=== PATIENT | female | born 1975 | race Caucasian/White ===

== ENCOUNTER 2017-04-08 20:20 | Emergency (ER) | payer MEDICAID ==
[~2017-04-08] VITALS: Ht 172.7 cm; Wt 88.0 kg
[~2017-04-08 20:20] MED LIST: ALBU8.5H IH; ALP5 PO; CETI-176 PO; CLON-303 *; CYCL10TA29 PO; DIA5 PO; DOXY-179 PO; ESCI20TA38 PO; ETHI1TAB3 PO; FEN145 PO; HYDR-4309 PO; IBUP800T37 PO; LOR5/325 PO; LOR7.5/325 PO; LORA5TAB16 PO; MEC25 PO; MECL-111 PO; METH54TA12 PO; MON10 PO; NAPR500T75 PO; OMEP-218 PO; PER PO; SERT-173 PO; THYR30TA21 PO; VENL150C61 PO; [UNRECOGNIZED DRUG - CODE] PO
--- NOTE | 2017-04-08 20:27 | ER Report ---
History and Physical Time Seen By MD: 20:24 HPI/ROS CHIEF COMPLAINT: ankle pain and swelling HISTORY OF PRESENT ILLNESS: This is a 41 year old female. She had sudden onset of swelling and pain in the right ankle today. Started a couple of hours ago. She was kneeling down, shifted to the side because of some knee pain. [place] a slight pop in the ankle, but no real pain and was not a significant injury. Then noted pain, swelling happening. No prior problems with this ankle. No history of gout, personal or family history. Normal sensation in toes. Can move everything, but hurts to move the ankle. Allergies: Coded Allergies: No Known Drug Allergies (Verified , 02/22/17) Home Meds Active Scripts Oxycodone Hcl/Acetaminophen (PERCOCET 5-325 MG TABLET) 1 Each Tablet, 1 EACH PO Q4H Y for PAIN, #10 TAB 0 Refills Prov:ETHAN DEWEY MD 04/08/17 Indomethacin (INDOMETHACIN) 25 Mg Capsule, 25 MG PO DIRECTED, #21 CAPSULE 0 Refills Take 2 tablets 3 times a day for 3 days with food, then decrease to 1 tablet 3 times a day for 3 more days Prov:ETHAN DEWEY MD 04/08/17 Reported Medications Doxycycline Hyclate (DOXYCYCLINE HYCLATE) 100 Mg Tablet, 100 MG PO QDAY 02/22/17 Ethinyl Estradiol/Drospirenone (DELANEY 28 TABLET) 1 Each Tablet, 1 EACH PO QDAY, TAB 02/22/17 Methylphenidate Hcl (CONCERTA) 54 Mg Tab.er.24, 54 MG PO QAM 02/22/17 Thyroid,Pork (ARMOUR THYROID) 30 Mg Tablet, 30 MG PO QDAY 02/22/17 Escitalopram Oxalate (LEXAPRO) 20 Mg Tablet, 20 MG PO QDAY 08/28/14 Cetirizine Hcl (ZYRTEC) 10 Mg Tablet, 10 MG PO QDAY, TAB TAKE 1 TABLET DAILY. 12/27/13 Ibuprofen (IBUPROFEN) 800 Mg Tablet, 1 TAB PO Q8H Y for PAIN, #15 08/29/13 Fenofibrate,Micronized (TRICOR) 145 Mg Tab, 145 MG PO QDAY, #10 TAB TAKE 1 TABLET BY MOUTH DAILY 08/23/13 Albuterol Sulfate 90 Mcg/Act (PROAIR HFA 90 MCG/ACT) 8.5 Gm Hfa.aer.ad, 1-2 PUFF IH 3-4XD 08/23/13 Omeprazole Magnesium (Prilosec Otc) 20 Mg Tablet.dr, 20 MG PO QDAY 10/17/11 Montelukast Sodium (Singulair) 10 Mg Tab, 10 MG PO QHS 10/17/11 Discontinued Scripts Diazepam (VALIUM) 5 Mg Tablet, 5 MG PO 2-3XD for Muscle Relaxant, #15 TAB 0 Refills Prov:LYNDA CUMMINGS MD 02/22/17 Hydrocodone Bit/Acetaminophen (HYDROCODON-ACETAMINOPHEN 5-325) 1 Each Tablet, 1 EACH PO Q4-6H Y for PAIN, #15 TAB 0 Refills TAKE ONE TABLET BY MOUTH EVERY 4-6 HOURS NEEDED FOR PAIN Prov:LYNDA CUMMINGS MD 02/22/17 Reviewed Nurses Notes: Yes Hx Smoking: No Smoking Status: Never Smoker Exposure to Second Hand Smoke?: No Hx Substance Use Disorder: No Hx Alcohol Use: Yes (occ) Constitutional Vital Sign - Last 24 Hours 04/08/17 04/08/17 04/08/17 04/08/17 20:23 20:26 20:35 20:50 Temp 98.5 Pulse 86 82 80 Resp 18 B/P (MAP) 140/93 (109) 140/93 Pulse Ox 96 95 96 O2 Delivery Room Air 04/08/17 04/08/17 04/08/17 04/08/17 21:05 21:10 21:15 21:20 Pulse 72 65 78 ??? Pulse Ox 97 97 96 96 04/08/17 04/08/17 04/08/17 04/08/17 21:25 21:30 21:35 21:40 Pulse 73 77 76 82 Pulse Ox 98 96 99 98 04/08/17 04/08/17 04/08/17 04/08/17 21:45 21:50 21:55 22:00 Pulse 75 77 72 77 Pulse Ox 96 98 96 96 04/08/17 04/08/17 04/08/17 04/08/17 22:05 22:10 22:15 22:20 Pulse 78 68 76 70 Pulse Ox 98 96 97 99 04/08/17 04/08/17 04/08/17 04/08/17 22:25 22:30 22:35 22:37 Pulse 66 75 77 B/P (MAP) 112/69 (83) Pulse Ox 96 98 95 Physical Exam General appearance: Patient is alert. No acute distress. Musculoskeletal: Right ankle shows some swelling. There is no obvious deformity. No bruising. Medial malleolus is tender. Lateral malleolus is tender. Head of the fifth metatarsal is nontender. No tenderness with squeeze of the lower leg or the foot. Weight bearing: Weight bearing not tested due to pain. Neurologic: The patient has normal sensation distal to the injury. Active range of motion is intact, but with pain. Cardiovascular: Normal dorsalis pedis and posterior tibialis pulses. Normal capillary refill. Skin: No rash. No skin breakdown. Skin is warm to touch over the area of swelling. DIFFERENTIAL DIAGNOSIS: After history and physical exam differential diagnosis was considered for ankle injury including inflammatory conditions such as gout, sprain, fracture, dislocation and soft tissue injury. Medical Decision Making Data Points Result Diagram: 04/08/17204504/08/172045 Laboratory Hematology Test 04/08/17 20:46 Red Blood Count 3.99 M/uL (4.17-5.56) Mean Corpuscular Volume 91.9 fL (80.0-96.0) Mean Corpuscular Hemoglobin 32.2 pg (26.0-33.0) Mean Corpuscular Hemoglobin Concent 35.1 g/dL (32.0-36.0) Red Cell Distribution Width 12.5 % (11.5-14.5) Mean Platelet Volume 8.6 fL (7.2-11.1) Neutrophils (%) (Auto) 57.9 % (39.4-72.5) Lymphocytes (%) (Auto) 30.4 % (17.6-49.6) Monocytes (%) (Auto) 8.1 % (4.1-12.4) Eosinophils (%) (Auto) 2.7 % (0.4-6.7) Basophils (%) (Auto) 0.9 % (0.3-1.4) Nucleated RBC Relative Count (auto) 0.0 /100WBC Neutrophils # (Auto) 4.4 K/uL (2.0-7.4) Lymphocytes # (Auto) 2.3 K/uL (1.3-3.6) Monocytes # (Auto) 0.6 K/uL (0.3-1.0) Eosinophils # (Auto) 0.2 K/uL (0.0-0.5) Basophils # (Auto) 0.1 K/uL (0.0-0.1) Nucleated RBC Absolute Count (auto) 0.00 K/uL Sodium Level 136 mmol/L (137-145) Potassium Level 3.5 mmol/L (3.5-5.0) Chloride Level 102 mmol/L (98-107) Carbon Dioxide Level 22 mmol/L (22-31) Blood Urea Nitrogen 10 mg/dl (7-18) Creatinine 0.70 mg/dl (0.52-1.04) Glomerular Filtration Rate Calc > 60.0 Random Glucose 84 mg/dl (75-110) Uric Acid 4.0 mg/dl (2.5-7.5) Calcium Level 9.3 mg/dl (8.4-10.2) Total Bilirubin 0.4 mg/dl (0.2-1.3) Aspartate Amino Transf (AST/SGOT) 24 U/L (0-35) Alanine Aminotransferase (ALT/SGPT) 30 U/L (0-56) Alkaline Phosphatase 44 U/L (0-126) C-Reactive Protein 3.7 mg/dl (<1.0) Total Protein 7.7 gm/dl (6.3-8.2) Albumin 4.2 g/dl (3.5-5.0) Chemistry Test 04/08/17 20:46 White Blood Count 7.6 k/uL (4.5-11.0) Red Blood Count 3.99 M/uL (4.17-5.56) Hemoglobin 12.9 g/dL (12.0-16.0) Hematocrit 36.7 % (34.0-47.0) Mean Corpuscular Volume 91.9 fL (80.0-96.0) Mean Corpuscular Hemoglobin 32.2 pg (26.0-33.0) Mean Corpuscular Hemoglobin Concent 35.1 g/dL (32.0-36.0) Red Cell Distribution Width 12.5 % (11.5-14.5) Platelet Count 361 K/uL (150-450) Mean Platelet Volume 8.6 fL (7.2-11.1) Neutrophils (%) (Auto) 57.9 % (39.4-72.5) Lymphocytes (%) (Auto) 30.4 % (17.6-49.6) Monocytes (%) (Auto) 8.1 % (4.1-12.4) Eosinophils (%) (Auto) 2.7 % (0.4-6.7) Basophils (%) (Auto) 0.9 % (0.3-1.4) Nucleated RBC Relative Count (auto) 0.0 /100WBC Neutrophils # (Auto) 4.4 K/uL (2.0-7.4) Lymphocytes # (Auto) 2.3 K/uL (1.3-3.6) Monocytes # (Auto) 0.6 K/uL (0.3-1.0) Eosinophils # (Auto) 0.2 K/uL (0.0-0.5) Basophils # (Auto) 0.1 K/uL (0.0-0.1) Nucleated RBC Absolute Count (auto) 0.00 K/uL Glomerular Filtration Rate Calc > 60.0 Uric Acid 4.0 mg/dl (2.5-7.5) Calcium Level 9.3 mg/dl (8.4-10.2) Total Bilirubin 0.4 mg/dl (0.2-1.3) Aspartate Amino Transf (AST/SGOT) 24 U/L (0-35) Alanine Aminotransferase (ALT/SGPT) 30 U/L (0-56) Alkaline Phosphatase 44 U/L (0-126) C-Reactive Protein 3.7 mg/dl (<1.0) Total Protein 7.7 gm/dl (6.3-8.2) Albumin 4.2 g/dl (3.5-5.0) EKG/Imaging Imaging RIGHT ANKLE: Indication: Pain and swelling. Technique: 3 views were obtained. Comparison: None. Findings: There is no evidence of fracture, subluxation, or other acute deformity. There is uniform mineralization of the bony structures. There is mild periarticular soft tissue swelling. IMPRESSION: Mild soft tissue swelling. No acute skeletal deformity. Report Dictated By: Toño Somers MD at 04/08/2017 9:45 PM ED Course/Re-evaluation ED Course Imaging negative. Based on onset of pain and how sensitive it is even to light touch, I think this is going to be a gout flareup. I doubt this is a strain. We' ll treat with indomethacin and some Percocet. Uric acid level is negative but CRP is high. No signs of infection and no skin breakdown. Decision to Disposition Date: Apr 08, 2017 Decision to Disposition Time: 22:29 Depart Departure Latest Vital Signs Vital Signs Date Time Temp Pulse Resp B/P (MAP) Pulse Ox O2 Delivery O2 Flow Rate FiO2 04/08/17 22:37 112/69 (83) 04/08/17 22:35 77 95 04/08/17 20:26 98.5 18 Room Air Impression: Primary Impression: Gout attack Condition: Improved Disposition: HOME OR SELF-CARE Referrals: JAREK GODDARD MD (PCP) New Scripts Oxycodone Hcl/Acetaminophen (PERCOCET 5-325 MG TABLET) 1 Each Tablet 1 EACH PO Q4H Y for PAIN, #10 TAB 0 Refills Prov: ETHAN DEWEY MD 04/08/17 Indomethacin (INDOMETHACIN) 25 Mg Capsule 25 MG PO DIRECTED, #21 CAPSULE 0 Refills Take 2 tablets 3 times a day for 3 days with food, then decrease to 1 tablet 3 times a day for 3 more days Prov: ETHAN DEWEY MD 04/08/17 Patient Instructions: Gout (ED) Additional Instructions: Indomethacin 25mg tablets, take 2 tablets 3 times a day for 3 days, then decrease to 1 tablet 3 times a day for 3 more day. Take this with food. Take Percocet 5/325, one every 4 hours as needed for pain. Problem Qualifiers Primary Impression: Gout attack Gout site: ankle Gout etiology: unspecified cause Laterality: right Qualified Codes: M10.9 - Gout, unspecified ETHAN DEWEY MD Apr 08, 2017 20:27
[2017-04-08 20:52] LABS: PLATELET COUNT, AUTOMATED 361 K/uL (150-450)
--- NOTE | 2017-04-08 21:52 | RADIOLOGY IMAGING REPORT ---
[place] [facility] [place] NAME: Anusha Subramanian : 1975 MR: [id number] V: [id number] EXAM DATE: ORDERING PHYSICIAN: ETHAN DEWEY TECHNOLOGIST: Location: [facility] Patient: Anusha Subramanian : 1975 Visit/Account:[id number] Date of Sevice: 04/08/2017 RIGHT ANKLE: Indication: Pain and swelling. Technique: 3 views were obtained. Comparison: None. Findings: There is no evidence of fracture, subluxation, or other acute deformity. There is uniform m ineralization of the bony structures. There is mild periarticular soft tissue swelling. IMPRESSION: Mild soft tissue swelling. No acute skeletal deformity. Report Dictated By: Toño Somers MD at 04/08/2017 9:45 PM Report E-Signed By: Toño Somers MD at 04/08/2017 9:47 PM WSN:[id number]
[2017-04-08] MEDS ORDERED: ONDANSETRON 4 MG ODT TABDP SL ONE (22:00)
[2017-04-08] MEDS ORDERED: oxyCODONE/ACETAMIN 5/325MG TH 2 TAB/BOTTLE PO ONE (22:30)
[2017-04-08] MEDS ORDERED: INDOMETHACIN 25 MG CAP PO ONE (22:30)
[2017-04-08] MEDS ORDERED: OXYC-865 PO (22:31)
[2017-04-08] MEDS ORDERED: INDO-1 PO (22:31)
[2017-04-08 22:37] VITALS: BP 112/69
== END 2017-04-08 22:35 | disposition home or self-care (01) ==
LOC: ER 20:33
DX: M10.9 Gout, unspecified (principal)
CPT/HCPCS: 36415; 73610; 84550; 85025; 86140; 99284; S0119; 82040; 82247; 82310; 82374; 82435; 82565; 82947; 84075; 84132; 84155; 84295; 84450; 84460; 84520

== ENCOUNTER 2017-04-14 14:09 | Emergency (ER) | payer MEDICAID ==
[~2017-04-14] VITALS: Ht 172.7 cm; Wt 88.0 kg
[~2017-04-14 14:09] MED LIST changes: +INDO-1 PO; +OXYC-865 PO
--- NOTE | 2017-04-14 14:16 | ER Report ---
History and Physical Time Seen By MD: 14:16 HPI/ROS CHIEF COMPLAINT: Right ankle pain HISTORY OF PRESENT ILLNESS: This is a 41-year-old female who presents to the emergency department again for right ankle swelling. Patient states that about 2 weeks ago she was kneeling down on the floor with her feet extended behind her the right ankle became uncomfortable she rolled to the side and felt a pop in her right ankle. She then developed some inflammation to the right ankle. After about a week she decided to come into the emergency department for further evaluation she was evaluated last Tuesday and was given indomethacin for possible gouty flareup. Patient went home took the indomethacin was instructed to keep her ankle elevated. Patient states there is a slight improvement in the inflammation but still painful. Patient also states that she has been working still and hasn't kept her ankle elevated as frequently as she was instructed to. Patient denies numbness or tingling. No coughs, nausea, vomiting, headaches , chest pain or shortness of breath. REVIEW OF SYSTEMS: Constitutional: No fever, no chills. Eyes: No discharge. ENT: No sore throat. Cardiovascular: No chest pain, no palpitations. Respiratory: No cough, no shortness of breath. Gastrointestinal: No abdominal pain, no vomiting. Genitourinary: No hematuria. Musculoskeletal: As above. Skin: No rashes. Neurological: No headache. Allergies: Coded Allergies: No Known Drug Allergies (Verified , 04/14/17) Home Meds Active Scripts Ibuprofen (IBUPROFEN) 800 Mg Tablet, 1 TAB PO Q8H Y for prn, #32 TAB Prov:ADAMA POLANCO [employer]-BC 04/14/17 Oxycodone Hcl/Acetaminophen (PERCOCET 5-325 MG TABLET) 1 Each Tablet, 1 EACH PO Q4H Y for PAIN, #10 TAB 0 Refills Prov:ETHAN DEWEY MD 04/08/17 Indomethacin (INDOMETHACIN) 25 Mg Capsule, 25 MG PO DIRECTED, #21 CAPSULE 0 Refills Take 2 tablets 3 times a day for 3 days with food, then decrease to 1 tablet 3 times a day for 3 more days Prov:ETHAN DEWEY MD 04/08/17 Reported Medications Doxycycline Hyclate (DOXYCYCLINE HYCLATE) 100 Mg Tablet, 100 MG PO QDAY 02/22/17 Ethinyl Estradiol/Drospirenone (DELANEY 28 TABLET) 1 Each Tablet, 1 EACH PO QDAY, TAB 02/22/17 Methylphenidate Hcl (CONCERTA) 54 Mg Tab.er.24, 54 MG PO QAM 02/22/17 Thyroid,Pork (ARMOUR THYROID) 30 Mg Tablet, 30 MG PO QDAY 02/22/17 Escitalopram Oxalate (LEXAPRO) 20 Mg Tablet, 20 MG PO QDAY 08/28/14 Cetirizine Hcl (ZYRTEC) 10 Mg Tablet, 10 MG PO QDAY, TAB TAKE 1 TABLET DAILY. 12/27/13 Ibuprofen (IBUPROFEN) 800 Mg Tablet, 1 TAB PO Q8H Y for PAIN, #15 08/29/13 Fenofibrate,Micronized (TRICOR) 145 Mg Tab, 145 MG PO QDAY, #10 TAB TAKE 1 TABLET BY MOUTH DAILY 08/23/13 Albuterol Sulfate 90 Mcg/Act (PROAIR HFA 90 MCG/ACT) 8.5 Gm Hfa.aer.ad, 1-2 PUFF IH 3-4XD 08/23/13 Omeprazole Magnesium (Prilosec Otc) 20 Mg Tablet.dr, 20 MG PO QDAY 10/17/11 Montelukast Sodium (Singulair) 10 Mg Tab, 10 MG PO QHS 10/17/11 Discontinued Scripts Diazepam (VALIUM) 5 Mg Tablet, 5 MG PO 2-3XD for Muscle Relaxant, #15 TAB 0 Refills Prov:LYNDA CUMMINGS MD 02/22/17 Hydrocodone Bit/Acetaminophen (HYDROCODON-ACETAMINOPHEN 5-325) 1 Each Tablet, 1 EACH PO Q4-6H Y for PAIN, #15 TAB 0 Refills TAKE ONE TABLET BY MOUTH EVERY 4-6 HOURS NEEDED FOR PAIN Prov:LYNDA CUMMINGS MD 02/22/17 Past Medical/Surgical History Patient has a past medical and surgical history of hypercholesterolemia, asthma , pneumonia, acid reflux, wears glasses and contacts, depression, anxiety, left knee surgery, tubal ligation. Reviewed Nurses Notes: Yes Hx Smoking: No Smoking Status: Never Smoker Exposure to Second Hand Smoke?: No Hx Substance Use Disorder: No Hx Alcohol Use: Yes (occ) Constitutional Vital Sign - Last 24 Hours 04/14/17 04/14/17 14:15 15:00 Temp 98.1 Pulse 96 91 Resp 16 B/P (MAP) 135/93 125/79 (94) Pulse Ox 97 95 O2 Delivery Room Air Room Air Physical Exam General Appearance: The patient is alert, has no immediate need for airway protection and no signs of toxicity. Eyes: Pupils equal and round no pallor or injection. ENT, Mouth: Mucous membranes are moist. Respiratory: There are no retractions, lungs are clear to auscultation. Cardiovascular: Regular rate and rhythm, distant heart sounds, no murmurs, clicks or rubs Gastrointestinal: Abdomen is soft and non tender, no masses, bowel sounds normal. Neurological: Alert and oriented X4. Moving all extremities. Following all commands. No focal neuro deficits. Skin: Swelling and slightly warm over the anterior part of foot and ankle, very faint ecchymosis, no rashes. No erythema or cellulitis. Is able to flex and extend foot. Musculoskeletal: Neck is supple non tender. CMS intact distal to the inflammation. All other extremities are nontender, nonswollen and have full range of motion. DIFFERENTIAL DIAGNOSIS: After history and physical exam differential diagnosis was considered for ankle sprain, gout, septic joint. Medical Decision Making ED Course/Re-evaluation ED Course The patient was admitted to room. A history physical were obtained. Differential diagnoses were considered. After reviewing the patient's x-rays from last week and reading through the reports and evaluation of her chief complaint today I did not feel a repeat Xray would not be beneficial. The patient did tell me that there has been a slight improvement in the inflammation since taking the indomethacin she was prescribed last Tuesday, she also states she is out of her pain medication. She and her mother continued to ask for more of the pain medication, I repeatedly told them that the narcotic pain medication will not fix the problem, therefore I will prescribe 800mg ibuprofen and she needs to follow up with ortho as this has been ongoing for 2 weeks and could have some ligament or tendon inflammation. There are no signs of infection, no erythema or cellulitis, the joints are freely movable, not hot , no redness therefore a septic joint is very unlikely. No calf pain, no concerns of a DVT. She has good CMS distal to the injury. I told her she needs to call today and schedule a follow up appointment with any of the Ortho providers tomorrow. I instructed her to keep her foot elevated and avoid walking on it for the next several days to help with the pain. I did offer crutches which she declined. I did give her an air stirrup to help with inflammation and overall support. After a lengthy discussion the patient was in agreement with this plan of care and was discharged home. I also instructed her to alternate the ibuprofen with the Tylenol for her pain. I also instructed her to establish a PCP who is not an [employer] for future medical care. Decision to Disposition Date: Apr 14, 2017 Decision to Disposition Time: 15:04 Depart Departure Latest Vital Signs Vital Signs Date Time Temp Pulse Resp B/P (MAP) Pulse Ox O2 Delivery O2 Flow Rate FiO2 04/14/17 15:00 91 125/79 (94) 95 Room Air 04/14/17 14:15 98.1 16 Impression: Primary Impression: Right ankle swelling Additional Impression: Tendonitis Condition: Improved Disposition: HOME OR SELF-CARE Referrals: JAREK GODDARD MD (PCP) SNEHA ZEPEDA MD [facility] New Scripts Ibuprofen (IBUPROFEN) 800 Mg Tablet 1 TAB PO Q8H Y for prn, #32 TAB Prov: ADAMA POLANCO 04/14/17 Departure Forms: ER Transition Record, Medications Reconciliation, Off Work/ School Form, School or Work Release?: Work Number of days to be released: 2 Patient Portal Information Patient Instructions: Ankle Sprain (ED), Neck Pain (GEN) Additional Instructions: Drink plenty of water. Get plenty of rest. Call [facility] today and try to schedule an appointment with one of the MD's tomorrow for evaluation of the foot and ankle. Establish a primary care provider within one to two weeks for follow up, please. You can alternate the Ibuprofen and Tylenol as needed for pain. Keep the Ankle elevated as much as possible to reduce the swelling. May return to the ED for worsening symptoms. Problem Qualifiers ADAMA POLANCO-BC Apr 14, 2017 14:16
[2017-04-14] MEDS ORDERED: IBUPROFEN 600 MG TAB TH PO ONE (14:55)
[2017-04-14] MEDS ORDERED: IBUP800T37 PO (14:57)
[2017-04-14 15:00] VITALS: BP 125/79
== END 2017-04-14 15:05 | disposition home or self-care (01) ==
LOC: ER 14:09
DX: M77.9 Enthesopathy, unspecified (principal)
CPT/HCPCS: 99283; L1930

== ENCOUNTER → 2017-04-18 | Outpatient (CLI) | payer MEDICAID ==
[2017-04-18 14:06] LABS: PLATELET COUNT, AUTOMATED 483 K/uL (150-450)
== END ==
LOC: LAB 13:31
PROVIDERS: ATTEND Orthopaedic Surgery
DX: M25.471 Effusion, right ankle (principal); M25.571 Pain in right ankle and joints of right foot
CPT/HCPCS: 36415; 84550; 85025; 85651; 86140

== ENCOUNTER 2017-05-10 11:01 | Outpatient (RCR) | payer MEDICAID ==
--- NOTE | 2017-05-24 11:15 | RADIOLOGY IMAGING REPORT ---
FACILITY: [facility] PATIENT NAME: Anusha Subramanian : 1975 MR: [id number] V: [id number] EXAM DATE: ORDERING PHYSICIAN: ANGELICA NEUMANN TECHNOLOGIST: Location: [facility] Patient: Anusha Subramanian : 1975 Visit/Account:[id number] Date of Sevice: 05/10/2017 EXAMINATION: Nuclear medicine whole body gallium scan HISTORY: Polyarthralgia. Bilateral foot and ankle pain. COMPARISON: None. TECHNIQUE: 4.8 mCi Gallium 67 was injected intravenously. Delayed anterior and posterior whole body gamma camera images were obtained at 24 hours and 72 hours. Additional gamma camera images: Bilateral knees, feet, hips, chest, elbows and wrists. FINDINGS: Bone radiotracer activity: There is physiologic bone marrow uptake which is symmetric and diminishes on the 72 hour delayed images. Extraosseous radiotracer activity: There are nodular areas of uptake in the upper mediastinum and bi lateral alessandro in the chest, which persists on the 72 hour delayed images. There is focal uptake in chirstin th lacrimal glands. IMPRESSION: 1. No scintigraphic evidence of an inflammatory polyarthropathy. 2. Abnormal uptake in the upper mediastinum, bilateral alessandro and lacrimal glands. This pattern is barrios spicious for sarcoidosis. These findings were discussed with ANGELICA NEUMANN at 05/24/2017 10:30 AM. Report Dictated By: Berkley Long MD at 05/24/2017 10:32 AM Report E-Signed By: Berkley Long MD at 05/24/2017 11:11 AM WSN:[id number]
== END 2017-05-10 18:00 | disposition home or self-care (01) ==
LOC: NUC 11:01
PROVIDERS: ATTEND Internal Medicine
DX: M35.9 Systemic involvement of connective tissue, unspecified (principal)
CPT/HCPCS: 78802

== ENCOUNTER → 2017-05-26 | Outpatient (CLI) | payer MEDICAID ==
[~2017-05-26] MED LIST changes: +IOPAMIDOL 76% 75 ML INFUS BTL 75 ML ONE
--- NOTE | 2017-05-26 14:06 | RADIOLOGY IMAGING REPORT ---
FACILITY: [facility] PATIENT NAME: Anusha Subramanian : 1975 MR: [id number] V: [id number] EXAM DATE: ORDERING PHYSICIAN: ANGELICA NEUMANN TECHNOLOGIST: Location: [facility] Patient: Anusha Subramanian : 1975 Visit/Account:[id number] Date of Sevice: 05/26/2017 Limited abdominal ultrasound of the right upper quadrant Indication: Elevated LFTs , Comparison: None available Findings Liver is normal in size, contour, and echotexture and measures 15.5 cm in length. There is normal hep atopedal portal venous flow. A Gallbladder wall thickness is 2 mm with no evidence of shadowing stone or sludge within the gallbladd er lumen. Negative sonographic Almanzar's sign reported by the technologist. Common duct measures 3 mm in maximum diameter with no evidence of shadowing stone. The head and proximal body of the pancreas is unremarkable. The distal body and tail is obscured by o verlying bowel gas. Abdominal aorta and IVC are patent and unremarkable. The right kidney is normal in size, contour, and echotexture and measures 11.3 cm in length. IMPRESSION: 1. Unremarkable appearance of the gallbladder and no acute abnormality on this ultrasound of the righ t upper quadrant region. Report Dictated By: Aaron Ballard at 05/26/2017 2:02 PM Report E-Signed By: Aaron Ballard at 05/26/2017 2:03 PM WSN:[id number]
--- NOTE | 2017-05-26 15:46 | RADIOLOGY IMAGING REPORT ---
FACILITY: [facility] PATIENT NAME: Anusha Subramanian : 1975 MR: [id number] V: [id number] EXAM DATE: ORDERING PHYSICIAN: ANGELICA NEUMANN TECHNOLOGIST: Location: [facility] Patient: Anusha Subramanian : 1975 Visit/Account:[id number] Date of Sevice: 05/26/2017 CT neck with and without contrast Comparison: None Additional pertinent history: Generalized hyperhidrosis TECHNIQUE: Multiple axial images were obtained from the mid portion of the brain through the superio r mediastinum with and without IV contrast. Coronal and sagittal reformatted images were obtained o ff the axial source data. One of the following dose optimization techniques was utilized in the perf ormance of this exam: Automated exposure control; adjustment of the mA and/or kV according to the pat ient's size; or use of an iterative reconstruction technique. Specific details can be referenced in the facility's radiology CT exam operational policy. CONTRAST: 75 mL of Isovue-370 FINDINGS: Visualized portions of the brain parenchyma:Negative Parotid glands/submandibular glands/thyroid: Negative Orbits: Negative Paranasal sinuses: Negative Parapharyngeal spaces: Negative Nasopharynx/oropharynx/hypopharynx: Negative Tonsillar pillars: Negative Oral tongue/tongue base: Negative True and false cords: Negative Lymph node assessment: Multiple enlarged lymph nodes involving the lower neck as well as the supracla vicular regions and the superior mediastinum and posterior mediastinum. Surrounding soft tissues: Negative Vasculature: Negative Osseous structures: Minimal spondylitic change involving the mid cervical spine. Lung apices: Negative IMPRESSION: 1. Multiple enlarged lymph nodes involving the lower neck bilaterally as well as the supraclavicular regions and the superior and posterior mediastinum. Etiologies such as an underlying lymphoid disorde r would be in the consideration. 2. Remaining portions of the exam are unremarkable. Report Dictated By: Dionisio Tejeda MD at 05/26/2017 3:36 PM Report E-Signed By: Dionisoi Tejeda MD at 05/26/2017 3:42 PM WSN:[id number]
--- NOTE | 2017-05-26 17:11 | RADIOLOGY IMAGING REPORT ---
FACILITY: [facility] PATIENT NAME: Anusha Subramanian : 1975 MR: [id number] V: [id number] EXAM DATE: ORDERING PHYSICIAN: ANGELICA NEUMANN TECHNOLOGIST[place] [facility] [place]a Subramanian : 1975 Visit/Account:[id number] Date of Sevice: 05/26/2017 EXAMINATION: CT Chest Without and With Contrast CT Abdomen Without and With Contrast CT Pelvis Without and With Contrast 05/26/2017 3:00 PM HISTORY: Generalized hyperhidrosis TECHNIQUE: Spiral scan was obtained through the chest, abdomen and pelvis before and during injecti on of nonionic iodinated intravenous contrast. Contrast: 75 mL of IV Isovue 370. One of the following dose optimization techniques was utilized in the performance of this exam: Autom ated exposure control; adjustment of the mA and/or kV according to the patient's size; or use of an i terative reconstruction technique. Specific details can be referenced in the facility's radiology C T exam operational policy. COMPARISON STUDIES: CT neck today is reported separately.. FINDINGS: CHEST: Lungs / pleura: Pleural-based subcentimeter groundglass focus laterally within the left upper lobe (s eries 7, images 50 and 51). Pleural-based micronodule in the posterior left base (image 81). Pleura l-parenchymal opacity in the anteromedial basal aspect of the right lower lobe measures about 3.6 x 2 .2 cm (series 7, image 65). Smaller pleural parenchymal focus just posterolateral to this (image 66) . Additional small pleural parenchymal focus along the anterior right middle lobe (images 57 and 58) . Mediastinum / alessandro: negative Heart / pericardium: negative Vessels: negative Musculoskeletal / Body wall: negative Lymph node assessment: Mild the prominent lymph node along the neck base on the right (image 10). Ad enopathy measures 2.2 x 2.0 cm along the right thoracic inlet (image 17). Additional mediastinal lizzy nopathy including a left prevascular lymph node 2.0 x 1.3 cm (image 32), right suprahilar lymph node or conglomeration of lymph nodes 3.2 x 2.3 cm (image 41). Conglomerate subcarinal lymph tissue which is probably 2 adjacent lymph nodes 4.6 x 2.4 cm. Left hilar adenopathy, largest in the infrahilar l ymph node 1.7 x 1.6 cm (image 48). No significant axillary or subpectoral adenopathy with small nons pecific subpectoral lymph nodes. There are also some small nonspecific lymph nodes along the distal esophagus. Lower neck: CT neck is reported separately. Thyroid enhancement is heterogeneous. ABDOMEN AND PELVIS: Liver / biliary: Hepatomegaly with craniocaudal dimension of 20.8 cm. Pancreas: negative Spleen: Borderline splenomegaly. No focal finding. Adrenal glands: negative Kidneys / retroperitoneum: negative Pelvic structures: Tubal ligation clips. Bowel / peritoneum / mesenteries: negative Vessels: negative Musculoskeletal / Body wall: negative Lymph node assessment: Small nonspecific retroperitoneal lymph nodes. No clear pathologically enlarg ed adenopathy. IMPRESSION: 1. Adenopathy in the chest in the neck base as well as nonspecific but somewhat numerous retroperito donovan lymph nodes in the abdomen. The appearance of be concerning for a lymphoproliferative malignanc y such as lymphoma. 2. Nonspecific pleural-parenchymal opacities in the lungs, as above. 3. Hepatomegaly and borderline splenomegaly. Report Dictated By: Leandro Solitario MD at 05/26/2017 4:46 PM Report E-Signed By: Leandro Solitario MD at 05/26/2017 5:08 PM WSN:[email or web address]
== END ==
LOC: CT 03:10
PROVIDERS: ATTEND Internal Medicine
DX: R59.0 Localized enlarged lymph nodes (principal); R16.2 Hepatomegaly with splenomegaly, not elsewhere classified; R91.8 Other nonspecific abnormal finding of lung field
CPT/HCPCS: 70492; 71270; 72194; 74170; 76705; Q9967

== ENCOUNTER 2017-11-25 14:58 | Emergency (ER) | payer MEDICAID ==
[~2017-11-25 14:58] MED LIST changes: -INDO-1 PO; +INDO-21 PO; -IOPAMIDOL 76% 75 ML INFUS BTL 75 ML ONE
[2017-11-25] MEDS ORDERED: IBUPROFEN 600 MG TAB PO ONE (15:30)
[2017-11-25] MEDS ORDERED: CYCLOBENZAPRINE HCL 10 MG TAB PO ONE (15:30)
--- NOTE | 2017-11-25 15:51 | RADIOLOGY IMAGING REPORT ---
FACILITY: [facility] PATIENT NAME: Anusha Subramanian : 1975 MR: [id number] V: [id number] EXAM DATE: ORDERING PHYSICIAN: LYNDA HINDS TECHNOLOGIST: Location: [facility] Patient: Anusha Subramanian : 1975 Visit/Account:[id number] Date of Sevice: 11/25/2017 EXAMINATION: Chest 2 Views HISTORY: Right thoracic pain. COMPARISON: None. FINDINGS: The lungs are clear. No focal consolidation or pleural fluid. No pneumothorax. Normal cardiomediastinal silhouette, with normal heart size and pulmonary vascularity. Visualized osseous structures are unremarkable. IMPRESSION: Negative chest. Report Dictated By: Elijah Leger MD at 11/25/2017 3:44 PM Report E-Signed By: Elijah Leger MD at 11/25/2017 3:46 PM WSN:[id number]
[2017-11-25 16:30] VITALS: BP 138/80
[2017-11-25] MEDS ORDERED: CYCL10TA29 PO (16:45)
--- NOTE | 2017-11-25 16:47 | ER Report ---
History and Physical Time Seen By MD: 15:02 Hx. of Stated Complaint: PATIENT REPORTS PAIN IN RIGHT SHOULDER THAT RADIATES UP INTO HER NECK. SHE ALSO REPORTS PAIN IN HER KNEES AND WRISTS. SHE REPORTS BEING DIAGNOSED WITH SARCOIDOSIS BY ANOTHER PROVIDER HPI/ROS CHIEF COMPLAINT: shoulder pain HISTORY OF PRESENT ILLNESS: Patient states she has had 5 days of worsening right shoulder pain. Patient denies acute injury. Patient states that she had mild pain when she swam on Tuesday recreationally. Patient notes that she had slight increase in pain when swimming and has had ongoing pain since this time. Patient notes pain is around right shoulder blade and is worse with lifting arm overhe ad. Patient states pain occasionally wakes her up at night. Patient has taken Tylenol but no other medication for pain. Patient has tried ice and heat for pain. Patient denies shortness of breath or chest pain. Patient is concerned this may be similar to her sarcoidosis as she has history of pain in her joints however this pain has usually been bilateral. Patient does not have left-sided shoulder pain or left chest pain. Patient denies nausea, vomiting, fevers, chills. Pain radiates down right arm and occasionally shoots up her neck. Patient was placed on 30 mg of prednisone daily 3 weeks ago by a supplier specialist however she was unsure of the need of this regimen as another provider felt she did not need to be on its own has not been on prednisone for greater than one week. REVIEW OF SYSTEMS: Constitutional: No fever, no chills. Eyes: No discharge. ENT: No sore throat. Cardiovascular: No chest pain, no palpitations. Respiratory: No cough, no shortness of breath. Gastrointestinal: No abdominal pain, no vomiting. Genitourinary: No hematuria. Musculoskeletal: r mid/upper back/shoulder pain as above Skin: No rashes. Neurological: No headache. Allergies: Coded Allergies: No Known Drug Allergies (Verified , 04/14/17) Home Meds Active Scripts Cyclobenzaprine Hcl (CYCLOBENZAPRINE HCL) 10 Mg Tablet, 10 MG PO Q8H PRN for MUSCLE SPASMS, #20 TAB 0 Refills Prov:LYNDA HINDS MD 11/25/17 Ibuprofen (IBUPROFEN) 800 Mg Tablet, 1 TAB PO Q8H PRN for prn, #32 TAB Prov:ADAMA POLANCO PETROGRAPHER-BC 2/8/18 Reported Medications Ethinyl Estradiol/Drospirenone (DELANEY 28 TABLET) 1 Each Tablet, 1 EACH PO QDAY, TAB 02/22/17 Thyroid,Pork (ARMOUR THYROID) 30 Mg Tablet, 30 MG PO QDAY 02/22/17 Escitalopram Oxalate (LEXAPRO) 20 Mg Tablet, 20 MG PO QDAY 08/28/14 Cetirizine Hcl (ZYRTEC) 10 Mg Tablet, 10 MG PO QDAY, TAB TAKE 1 TABLET DAILY. 12/27/13 Ibuprofen (IBUPROFEN) 800 Mg Tablet, 1 TAB PO Q8H PRN for PAIN, #15 08/29/13 Albuterol Sulfate 90 Mcg/Act (PROAIR HFA 90 MCG/ACT) 8.5 Gm Hfa.aer.ad, 1-2 PUFF IH 3-4XD 08/23/13 Omeprazole Magnesium (Prilosec Otc) 20 Mg Tablet.dr, 20 MG PO QDAY 10/17/11 Montelukast Sodium (Singulair) 10 Mg Tab, 10 MG PO QHS 10/17/11 Discontinued Reported Medications Doxycycline Hyclate (DOXYCYCLINE HYCLATE) 100 Mg Tablet, 100 MG PO QDAY 02/22/17 Methylphenidate Hcl (CONCERTA) 54 Mg Tab.er.24, 54 MG PO QAM 02/22/17 Fenofibrate,Micronized (TRICOR) 145 Mg Tab, 145 MG PO QDAY, #10 TAB TAKE 1 TABLET BY MOUTH DAILY 08/23/13 Discontinued Scripts Oxycodone Hcl/Acetaminophen (PERCOCET 5-325 MG TABLET) 1 Each Tablet, 1 EACH PO Q4H PRN for PAIN, #10 TAB 0 Refills Prov:ETHAN DEWEY MD 04/08/17 Indomethacin (INDOMETHACIN) 25 Mg Capsule, 25 MG PO DIRECTED, #21 CAPSULE 0 Refills Take 2 tablets 3 times a day for 3 days with food, then decrease to 1 tablet 3 times a day for 3 more days Prov:ETHAN DEWEY MD 04/08/17 Reviewed Nurses Notes: Yes Hx Smoking: No Smoking Status: Never Smoker Exposure to Second Hand Smoke?: No Hx Substance Use Disorder: No Hx Alcohol Use: Yes (occ) Constitutional Vital Sign - Last 24 Hours 11/25/17 11/25/17 11/25/17 11/25/17 15:03 15:03 15:28 15:30 Temp 98.3 Pulse 85 82 Resp 20 B/P (MAP) 152/104 (120) 152/104 125/107 (113) Pulse Ox 96 95 O2 Delivery Room Air 11/25/17 11/25/17 11/25/17 11/25/17 15:58 16:00 16:28 16:30 Pulse 81 81 B/P (MAP) 124/82 (96) 138/80 (99) Pulse Ox 96 98 Physical Exam General Appearance: [The patient is alert, has no immediate need for airway protection and no signs of toxicity. Eyes: Pupils equal and round no pallor or injection. ENT, Mouth: Mucous membranes are moist. Respiratory: There are no retractions, lungs are clear to auscultation. Cardiovascular: Regular rate and rhythm. Gastrointestinal: Abdomen is soft and non tender, no masses, bowel sounds normal. Neurological: alert, oriented, moves all extremities, no gross cranial nerve deficits Skin: Warm and dry, no rashes. Musculoskeletal: Neck is supple non tender. Right mid thoracic ttp with completely reproducible pain in area of r latissimus dorsi. Extremities are nontender, nonswollen and have full range of motion; Pt has pain upon complete abduction of r shoulder, however all pain is related to the completely reproducible r lat pain/ttp. DIFFERENTIAL DIAGNOSIS: After history and physical exam differential diagnosis was considered for pe, ptx, pneumonia, aortic dissection, fracture, dislocation, joint injury, muscle spasm, or other emergent etiology Medical Decision Making ED Course/Re-evaluation ED Course Pt presents with r thoracic back pain; no e/o underlying emergent etiology. Pt improves slightly in ED. CXR unremarkable. Will d/c with SRP's and close f/u, disucssed ice, musc relaxant, massage, and f/u with supplier specialist. Decision to Disposition Date: Nov 25, 2017 Decision to Disposition Time: 16:55 Depart Departure Latest Vital Signs Vital Signs Date Time Temp Pulse Resp B/P (MAP) Pulse Ox O2 Delivery O2 Flow Rate FiO2 11/25/17 16:30 138/80 (99) 11/25/17 16:28 81 98 11/25/17 15:03 98.3 20 Room Air Impression: Primary Impression: Muscle strain of right upper back Condition: Improved Disposition: HOME OR SELF-CARE New Scripts Cyclobenzaprine Hcl (CYCLOBENZAPRINE HCL) 10 Mg Tablet 10 MG PO Q8H PRN for MUSCLE SPASMS, #20 TAB 0 Refills Prov: LYNDA HINDS MD 11/25/17 Patient Instructions: Back Pain (ED), Muscle Strain (ED) Additional Instructions: As we discussed, return immediately for new/different symptoms or any concerns. You may use combination of ice, massage, ibuprofen 600mg every 8 hours, and muscle relaxation to assist in symptoms. Please follow up with your rheumatolo gist and parimary physician for further evaluation. Problem Qualifiers Primary Impression: Muscle strain of right upper back Encounter type: initial encounter Qualified Codes: S29.012A - Strain of muscle and tendon of back wall of thorax, initial encounter LYNDA HINDS MD Nov 25, 2017 16:47
== END 2017-11-25 17:04 | disposition home or self-care (01) ==
LOC: ER 15:10
DX: S29.012A Strain of muscle and tendon of back wall of thorax, initial encounter (principal)
CPT/HCPCS: 71046; 99283

== ENCOUNTER 2018-07-04 14:00 | Emergency (ER) | payer MEDICAID ==
[~2018-07-04 14:00] MED LIST changes: -HYDR-4309 PO; +HYDR-653 PO
--- NOTE | 2018-07-04 14:03 | ER Report ---
History and Physical Time Seen By MD: 14:03 HPI/ROS CHIEF COMPLAINT: Fall, neck pain HISTORY OF PRESENT ILLNESS: Patient is a 42-year-old female who presents to the emergency department after a slip and fall on the ice is complaining of left lateral neck pain but also some numbness that is going down her left arm to her elbow where she is feeling an ache-like sensation. Patient reports that she has a history of spinal stenosis at C5-C7. She denies striking her head or complaining of headache. She has no complaints of motor weakness to the affected extremity. REVIEW OF SYSTEMS: Respiratory: No cough, no dyspnea. Cardiovascular: No chest pain, no palpitations. Gastrointestinal: No vomiting, no abdominal pain. Musculoskeletal: No back pain. Left lateral neck pain Allergies: Coded Allergies: No Known Drug Allergies (Verified , 04/14/17) Home Meds Active Scripts Methocarbamol (ROBAXIN-750) 750 Mg Tablet, 1500 MG PO QID for Muscle Relaxant, #30 TAB 0 Refills Prov:LYNDA CUMMINGS MD 07/04/18 Hydrocodone Bit/Acetaminophen (HYDROCODON-ACETAMINOPHEN 5-325) 1 Each Tablet, 1 EACH PO Q4H for PAIN, #12 TAB 0 Refills TAKE ONE TABLET BY MOUTH EVERY 4-6 HOURS NEEDED FOR PAIN Prov:LYNDA CUMMINGS MD 07/04/18 Reported Medications Modafinil (PROVIGIL) 100 Mg Tablet, 200 MG PO 07/04/18 Budesonide/Formoterol Fumarate (SYMBICORT 160-4.5 MCG INHALER) 10.2 Gm Inh, 10.2 GM INH, INH 07/04/18 Hydroxychloroquine Sulfate (PLAQUENIL) 200 Mg Tablet, 400 MG PO BID 07/04/18 Ethinyl Estradiol/Drospirenone (DELANEY 28 TABLET) 1 Each Tablet, 1 EACH PO QDAY, TAB 02/22/17 Thyroid,Pork (ARMOUR THYROID) 30 Mg Tablet, 30 MG PO QDAY 02/22/17 Escitalopram Oxalate (LEXAPRO) 20 Mg Tablet, 20 MG PO QDAY 08/28/14 Cetirizine Hcl (ZYRTEC) 10 Mg Tablet, 10 MG PO QDAY, TAB TAKE 1 TABLET DAILY. 12/27/13 Albuterol Sulfate 90 Mcg/Act (PROAIR HFA 90 MCG/ACT) 8.5 Gm Hfa.aer.ad, 1-2 PUFF IH 3-4XD 08/23/13 Omeprazole Magnesium (Prilosec Otc) 20 Mg Tablet.dr, 20 MG PO QDAY 10/17/11 Montelukast Sodium (Singulair) 10 Mg Tab, 10 MG PO QHS 10/17/11 Discontinued Reported Medications Ibuprofen (IBUPROFEN) 800 Mg Tablet, 1 TAB PO Q8H PRN for PAIN, #15 08/29/13 Discontinued Scripts Cyclobenzaprine Hcl (CYCLOBENZAPRINE HCL) 10 Mg Tablet, 10 MG PO Q8H PRN for MUSCLE SPASMS, #20 TAB 0 Refills Prov:LYNDA HINDS MD 11/25/17 Ibuprofen (IBUPROFEN) 800 Mg Tablet, 1 TAB PO Q8H PRN for prn, #32 TAB Prov:ADAMA POLANCO RECORDS ANALYST-BC 04/14/17 Past Medical/Surgical History Noncontributory towards this chief complaint Hx Smoking: No Smoking Status: Never Smoker Exposure to Second Hand Smoke?: No Hx Substance Use Disorder: No Hx Alcohol Use: Yes (occ) Constitutional Vital Sign - Last 24 Hours 07/04/18 07/04/18 14:09 14:11 Temp 98.2 Pulse 97 Resp 14 B/P (MAP) 133/74 (93) 133/74 Pulse Ox 94 O2 Delivery Room Air Physical Exam She was placed in rigid cervical collar. General Appearance: The patient is alert, has no immediate need for airway protection and no current signs of toxicity. Examination of the Left hand reveals no acute deformity. The patient is able to give a thumbs up sign, is able to make an okay sign, and is able to AB duct the fingers. Sensation is intact over the dorsal 1st web space, the volar aspect of the 2nd finger, and the volar aspect of the 5th finger. Capillary refill is brisk. Musculoskeletal: Neck: Patient is in cervical collar Extremities have full range of motion and are non tender. Skin: No rashes or lesions. Medical Decision Making EKG/Imaging Imaging c-spine neg for fracture ED Course/Re-evaluation ED Course Cervical spine images negative for fracture. We'll discharge the patient home with pain medication muscle relaxant. Decision to Disposition Date: Jul 04, 2018 Decision to Disposition Time: 15:14 Depart Departure Latest Vital Signs Vital Signs Date Time Temp Pulse Resp B/P (MAP) Pulse Ox O2 Delivery O2 Flow Rate FiO2 07/04/18 14:11 98.2 97 14 133/74 94 Room Air Impression: Primary Impression: Acute neck sprain Condition: Improved Disposition: HOME OR SELF-CARE New Scripts Methocarbamol (ROBAXIN-750) 750 Mg Tablet 1500 MG PO QID for Muscle Relaxant, #30 TAB 0 Refills Prov: LYNDA CUMMINGS MD 07/04/18 Hydrocodone Bit/Acetaminophen (HYDROCODON-ACETAMINOPHEN 5-325) 1 Each Tablet 1 EACH PO Q4H for PAIN, #12 TAB 0 Refills TAKE ONE TABLET BY MOUTH EVERY 4-6 HOURS NEEDED FOR PAIN Prov: LYNDA CUMMINGS MD 07/04/18 Patient Instructions: Acute Neck Pain (ED) Problem Qualifiers Primary Impression: Acute neck sprain Encounter type: initial encounter Qualified Codes: S13.9XXA - Sprain of joints and ligaments of unspecified parts of neck, initial encounter LYNDA CUMMINGS MD Jul 04, 2018 14:03
[2018-07-04 14:11] VITALS: BP 133/74
[2018-07-04] MEDS ORDERED: IBUPROFEN 600 MG TAB PO ONE (14:15)
[2018-07-04] MEDS ORDERED: BUDE10.2 INH (14:16)
[2018-07-04] MEDS ORDERED: HYDR200T77 PO (14:16)
[2018-07-04] MEDS ORDERED: MODA100T39 PO (14:17)
--- NOTE | 2018-07-04 15:11 | RADIOLOGY IMAGING REPORT ---
FACILITY: [facility] [place] PATIENT NAME: Anusha Subramanian : 1975 MR: [id number] V: [id number] EXAM DATE: [id number] ORDERING PHYSICIAN: LYNDA CUMMINGS TECHNOLOGIST: Location: [facility] [place] Patient: Anusha Subramanian : 1975 Visit/Account:[id number] Date of Sevice: 07/04/2018 EXAMINATION: CT Cervical spine without intravenous contrast HISTORY: Fall. Spinal stenosis. Left-sided pain. Decreased range of motion. COMPARISON: MRI of the cervical spine from 09/30/2014. TECHNIQUE: Axial images were obtained from the skull base through the upper thoracic spine without I V contrast administration. Coronal and sagittal reformatted images were obtained from the axial [facility] e data. One of the following dose optimization techniques was utilized in the performance of this exam: Autom ated exposure control; adjustment of the mA and/or kV according to the patient's size; or use of an i terative reconstruction technique. Specific details can be referenced in the facility's radiology C T exam operational policy. FINDINGS: Alignment: Normal. Cranio-cervical junction: Negative. Vertebral bodies: Vertebral body heights are maintained. No acute fracture. Posterior elements: No acute fracture. Hardware: None. Disc Spaces: Mild multilevel disc degenerative changes. Uncovertebral spurring causes mild bilateral neural foraminal stenosis at the C5-6 level and mild stenosis of the left C6-7 neural foramen. Soft tissues: Negative. Visualized upper chest: Negative. IMPRESSION: No acute fracture or dislocation of the cervical spine. Mild multilevel disc degenerative changes in the cervical spine. Report Dictated By: Linden Huang MD at 07/04/2018 2:57 PM Report E-Signed By: Linden Huang MD at 07/04/2018 3:06 PM WSN:[id number]
[2018-07-04] MEDS ORDERED: METH-543 PO (15:16)
[2018-07-04] MEDS ORDERED: LOR5/325 PO (15:16)
[2018-07-04] MEDS ORDERED: APAP/HYDROCODONE 325/5 TAB PO ONE (15:20)
== END 2018-07-04 15:25 | disposition home or self-care (01) ==
LOC: ER 14:34
DX: S13.9XXA Sprain of joints and ligaments of unspecified parts of neck, initial encounter (principal)
CPT/HCPCS: 72125; 99284; L0172